=== PATIENT | female | born 1980 | race Hispanic/Latino ===

== ENCOUNTER 2020-06-11 19:57 | Inpatient (IN) | payer MEDICAID, OTHER, SELFPAY ==
[2020-06-11] MEDS ORDERED: Lidocaine 1% (PF) 30 ML VIAL SC PRN (20:28)
[2020-06-11] MEDS ORDERED: NS / Oxytocin 40 units/1000ml 1,000 ML IV PRN (20:28)
[2020-06-11] MEDS ORDERED: Promethazine HCl 25 MG/ML VIAL IM PRN (20:28)
[2020-06-11] MEDS ORDERED: hydrALAZINE 20 MG/ML VIAL SLOW IVP PRN (20:28)
[2020-06-11] MEDS ORDERED: Ondansetron PF 4 MG/2 ML Vial IVP PRN (20:28)
[2020-06-11] MEDS: Lactated Ringer's 1,000 ML IV SCH (20:50)
[2020-06-11] MEDS ORDERED: Carboprost 250 MCG/ML AMP IM PRN (21:02)
[2020-06-11] MEDS ORDERED: Misoprostol 200 MCG TAB PR PRN (21:02)
[2020-06-11] MEDS ORDERED: Methylergonovine 0.2 MG/ML VIAL IM PRN (21:02)
[2020-06-11 21:43] LABS: Hemoglobin 12.7 g/dL (12.0-15.5); Mean Corpuscular HGB CONC 33.2 g/dL (32.0-36.0); Mean Corpuscular Hemoglobin 29.1 pg (27.0-33.0); Mean Corpuscular Volume 87.6 fl (81.6-98.3); Mean Platelet Volume 11.3 fl (7.4-10.4); Platelet Count 192 10x3/uL (150-450); RBC Distribution Width 14.6 % (11.5-14.5); Red Blood Cell (RBC) Count 4.36 10x6/uL (3.90-5.03); White Blood Cell (WBC) Count 8.6 10x3/uL (3.5-10.5)
[2020-06-11 21:58] VITALS: BMI 30.9
[2020-06-11] MEDS ORDERED: Penicillin G Potassium 5 MILL.UNITS in Sodium Chloride 0.9% 100 ML IVPB SCH (22:00)
[2020-06-11 22:20] LABS: Hep B Surf Ag Non-Reactive S/CO (NonReactive); Syphilis Antibody Nonreactive (Nonreactive); Syphilis Antibody Index 0.02 S/CO (<1.00 Non-Reactive)
[2020-06-11 22:23] LABS: HBSAg Index 0.17 S/CO (0-0.99)
[2020-06-12] MEDS: NS w/ Oxytocin 30 units 500 ML ONE ×2 (00:48→01:44)
[2020-06-12] MEDS ORDERED: NS w/ Oxytocin 30 units 500 ML ONE (01:43)
[2020-06-12] MEDS ORDERED: Penicillin G 2.5 MILL.units 2.5 MILL.UNITS in Premix Bag 1 BAG IVPB SCH (02:00)
[2020-06-12] MEDS ORDERED: Ibuprofen 800 MG TAB PO SCH ×2 (02:30→06:00)
[2020-06-12] MEDS: Bisacodyl 10 MG SUPP PR SCH ×3 (07:15→18:08)
[2020-06-12] MEDS: Lactated Ringer's 1,000 ML IV SCH ×3 (07:16→19:40)
[2020-06-12] MEDS: Ferrous Sulfate 325 MG TAB PO SCH ×2 (08:32→09:20)
[2020-06-12] MEDS: Milk Of Magnesia 30 ML UDCUP PO SCH (08:38)
[2020-06-12] MEDS ORDERED: HYDROcodone/Acetaminophen 5/325 mg Tablet PO SCH (09:00)
[2020-06-12] MEDS: Docusate Calcium (SURFAK) 240 MG CAP PO SCH ×2 (09:12→22:38)
[2020-06-12] MEDS: Ibuprofen 800 MG TAB PO SCH ×2 (10:34→18:13)
[2020-06-12 12:00] LABS: SARS-CoV-2 PCR by NAA Not Detected (NotDetected)
[2020-06-13] MEDS: Bisacodyl 10 MG SUPP PR SCH ×3 (01:45→20:30)
[2020-06-13] MEDS: Ibuprofen 800 MG TAB PO SCH ×3 (02:24→19:53)
[2020-06-13] MEDS: Lactated Ringer's 1,000 ML IV SCH ×2 (03:57→13:37)
[2020-06-13] MEDS ORDERED: traMADol HCl 50 MG TAB PO SCH (06:45)
[2020-06-13] MEDS: Docusate Calcium (SURFAK) 240 MG CAP PO SCH ×2 (08:15→19:53)
[2020-06-13] MEDS: Ferrous Sulfate 325 MG TAB PO SCH ×2 (08:16→17:20)
[2020-06-13] MEDS: Milk Of Magnesia 30 ML UDCUP PO SCH (10:36)
[2020-06-14] MEDS: Ibuprofen 800 MG TAB PO SCH ×2 (03:07→11:33)
[2020-06-14] MEDS: Bisacodyl 10 MG SUPP PR SCH ×2 (03:09→11:33)
[2020-06-14] MEDS ORDERED: Acetaminophen 500 MG TAB PO PRN (06:28)
[2020-06-14 07:48] VITALS: BP 116/72; TEMP 98
[2020-06-14] MEDS: Lactated Ringer's 1,000 ML IV SCH (08:05)
[2020-06-14] MEDS: Ferrous Sulfate 325 MG TAB PO SCH (08:06)
[2020-06-14] MEDS: Milk Of Magnesia 30 ML UDCUP PO SCH (08:06)
[2020-06-14] MEDS: Docusate Calcium (SURFAK) 240 MG CAP PO SCH (08:57)
== END 2020-06-14 13:10 | disposition home or self-care (01) | DRG 807 ==
LOC: CSHERS 19:57 → CSHLD 21:25 → CSHPP 06-12 03:35
PROVIDERS: ADMIT Family Medicine; ATTEND Family Medicine
PROC: 10E0XZZ Delivery of Products of Conception, External Approach (ICD-10-PCS; principal; 2020-06-12)
PROC: 3E0P7VZ Introduction of Hormone into Female Reproductive, Via Natural or Artificial Opening (ICD-10-PCS; 2020-06-12)
PROC: 3E033VJ Introduction of Other Hormone into Peripheral Vein, Percutaneous Approach (ICD-10-PCS; 2020-06-12)
DX: O99.824 Streptococcus B carrier state complicating childbirth (principal); Z37.0 Single live birth; Z20.822 Contact with and (suspected) exposure to COVID-19; O99.344 Other mental disorders complicating childbirth; F32.9 Major depressive disorder, single episode, unspecified; O71.82 Other specified trauma to perineum and vulva; O77.0 Labor and delivery complicated by meconium in amniotic fluid; O69.81X0 Labor and delivery complicated by cord around neck, without compression, not applicable or unspecified; Z3A.40 40 weeks gestation of pregnancy
CPT/HCPCS: 85027; 86780; 86850; 86900; 86901; 87340; 87635; 99285; J2540; J2590; J3490; U0003; U0005